=== PATIENT | male | born 1955 | race Caucasian/White ===

== ENCOUNTER → 2023-11-02 | Outpatient (CLI) | payer BC ==
--- NOTE | 2023-11-02 13:29 | CT ---
EXAMINATION TYPE: CT soft tissue neck w con DATE OF EXAM: 11/02/2023 HISTORY: left side swelling, mass/lump marked with bb, hx of tonsils removed and left side mastoidect naresh COMPARISON: NONE CT DLP: 408.30 mGycm. Automated Exposure Control for Dose Reduction was Utilized. TECHNIQUE: CT scan of the neck is performed with IV Contrast, patient injected with 100 mL of Isovue 300, axial images are obtained, coronal and sagittal reformatted images are reviewed. FINDINGS: Airway: Mild/moderate emphysematous change in the visualized upper lungs. Heterogeneous multinodular thyroid gland including partially calcified slightly hypodense 2.3 cm nodule in the left isthmus axia l image 40. Nonemergent thyroid ultrasound follow-up advised if this is not known finding. Parotid/submandibular glands: Metallic BB at site of palpable abnormality left parotid region axial i mage 76. There is heterogeneous circumscribed enhancing solid mass in the left parotid gland measurin g 3.9 x 2.5 cm size image 82 x 4.1 cm craniocaudal dimension coronal image 37. This occupying signifi cant portion of the posterior deep left parotid gland. Submandibular glands are symmetric and within normal limits. Carotid/Vascular Structures: There is 4 vessel origin from the aortic arch which is normal variant . Mild/moderate peripheral plaque in the aortic arch. Osseous Structures: Dextroconvex scoliosis centered in the upper thoracic spine. Slight grade 1 retro listhesis C4 on C5. [id number] spurring and disc space narrowing at this level and at C6-C7 lev el. Other: No definitive greater than 1 cm neck adenopathy. IMPRESSION: There is heterogeneous enhancing 4.1 cm predominantly solid mass in the left parotid glan d worrisome for neoplasm.. Advise ENT referral to further evaluate and workup.
== END | disposition home or self-care (01) ==
LOC: RADCTMAIN 10:55
PROVIDERS: ATTEND Family Medicine
DX: R22.1 Localized swelling, mass and lump, neck (principal)
CPT/HCPCS: 70491; Q9967

== ENCOUNTER 2023-11-29 08:42 | Day surgery (SDC) | payer BC ==
[2023-11-29] MEDS ORDERED: LACTATED RINGERS 1,000 ML IV SCH (09:29)
[2023-11-29] MEDS: LACTATED RINGERS 1,000 ML IV ONE (09:36)
[2023-11-29] MEDS: LABETALOL 5 MG/ML VIAL MDV IVP ONE (09:53)
[2023-11-29 10:09] VITALS: TEMP 98
[2023-11-29] MEDS ORDERED: PROPOFOL 10 MG/ML 20 ML VIAL IV ONE (10:23)
[2023-11-29] MEDS ORDERED: LIDOCAINE 1% INJ 10MG/ML (20 ML MDV) ONE (10:23)
--- NOTE | 2023-11-29 10:33 | P.PCN ---
Date of Procedure: 11/29/23 Procedure(s) Performed: BRIEF HISTORY: Patient is a 68-year-old, pleasant, male scheduled for an upper endoscopy as a part of evaluation of chronic dyspeptic symptoms for the last 3-4 years duration.. PROCEDURE PERFORMED: Esophagogastroduodenoscopy With biopsy PREOPERATIVE DIAGNOSIS: chronic epigastric pain of several years duration IV sedation per anesthesia. PROCEDURE: After informed consent was obtained, the patient was brought into the endoscopy unit. IV sedation was administered by Anesthesia under continuous monitoring. Initially the Olympus GIF-140 video endoscope was inserted into the mouth. Esophagus intubated without any difficulty. It was gradually advanced into the stomach and duodenum and carefully examined. The bulb and the second part of the duodenum appeared normal. up to his were done from the duodenum to rule out celiac disease. he scope at this time was withdrawn to the stomach, adequately insufflated with air, and upon careful examination, mucosa of the antrum, had mild mottling of the mucosa consistent with gastritis and biopsies were done from this area. Mucosa of the body, cardia and the fundus appeared normal. The scope was then withdrawn into the esophagus. The GE junction was located at 39 cm from the incisors. The esophagus appeared normal. There were no erosions or ulcerations seen, biopsies were done from the distal esophagus and the patient tolerated the procedure well. IMPRESSION: 1. Mild antral gastritis 2. No evidence of esophagitis or peptic ulcer disease RECOMMENDATIONS: The findings of this examination were discussed with the patient as well as his family. He was advised to continue with his current medications and follow antireflux measures. If he has persistent symptoms he can follow up in office for further evaluation
[2023-11-29 11:13] VITALS: BP 129/89; PULSE 83; RESP 18
== END 2023-11-29 11:49 | disposition home or self-care (01) ==
LOC: ORWHC2ENDO 08:42
PROVIDERS: ATTEND Internal Medicine Gastroenterology
DX: K29.50 Unspecified chronic gastritis without bleeding (principal); K31.A11 Gastric intestinal metaplasia without dysplasia, involving the antrum; K21.00 Gastro-esophageal reflux disease with esophagitis, without bleeding; G89.29 Other chronic pain; Z98.890 Other specified postprocedural states
CPT/HCPCS: 43239; J2001; J2704; J1920; 88305

== ENCOUNTER 2023-12-12 08:00 | Day surgery (SDC) | payer BC ==
[2023-12-12 09:12] VITALS: TEMP 97.7
[2023-12-12 09:45] VITALS: RESP 18
[2023-12-12 10:17] VITALS: BP 145/89; PULSE 77
--- NOTE | 2023-12-13 08:42 | US ---
EXAMINATION TYPE: US biopsy parotid gland DATE OF EXAM: 12/12/2023 9:44 AM CLINICAL INDICATION:Male, 68 years old with history of R22.1 localized swelling; thyroid nodule. COMPARISON: 11/02/2023 ATTENDING: Dr. Saul Bañuelos PROCEDURE: Informed consent was obtained. The risks and benefits of the procedure were discussed with the patien t. The site was marked. Timeout procedure was performed Ultrasound imaging of the thyroid demonstrates left parotid gland lesion. The patient was prepped, draped in the usual sterile fashion, and locally anesthetized with 1% lidoca ine. 3 x 20-gauge core biopsies were obtained. Samples were sent to the pathology department for furt her analysis. Patient tolerated the procedure without incident and was sent home in stable condition . IMPRESSION: Successful left parotid gland core biopsy.
== END 2023-12-12 09:50 | disposition home or self-care (01) ==
LOC: RADPROMAIN 08:00
PROVIDERS: ATTEND Otolaryngology
DX: E04.1 Nontoxic single thyroid nodule (principal)
CPT/HCPCS: 42400; 76942; 88305

== ENCOUNTER → 2023-12-14 | Outpatient (CLI) | payer BC ==
--- NOTE | 2023-12-14 22:25 | US ---
EXAMINATION TYPE: US thyroid st tissue head/neck DATE OF EXAM: 12/14/2023 COMPARISON: None CLINICAL INDICATION: Male, 68 years old with history of E04.1 NONTOXIC SINGLE THYROID NODULE; Thyroid nodule seen on CT. GLAND SIZE: Right Lobe: 3.5 x 2.1 x 1.8 cm Overall Parenchyma: Heterogeneous Left Lobe: 4.9 x 1.9 x 2.0 cm Overall Parenchyma: Heterogeneous Isthmus Thickness: 4.4 mm NODULES RIGHT: # of nodules measured on right: 1 1. 1.2 X 1.1 x 0.9 cm, lower medial, solid or almost completely solid, isoechoic nodule, which is w ider than tall, with smooth margins, but with echogenic foci making this a TR4 nodule. Prior size: No prior LEFT: # of nodules measured on left: 1 1. 2.7 X 1.6 x 2.0 cm, mid lateral, solid or almost completely solid, hyperechoic TR3 nodule, which is wider than tall, with smooth margins, without echogenic foci. Prior size: No prior ISTHMUS: # of nodules measured in the isthmus: 1 1. 2.3 X 1.8 x 1.4 cm left lateral solid or almost completely solid, hypoechoic TR4 nodule, which i s wider than tall, with smooth margins, with echogenic foci. Prior size: No prior Bilateral neck scanned, there is a thickened but nonenlarged lymph node along the right lateral neck, probably reactive/post inflammatory. Measuring 1.2 x 0.5 x 0.5 cm. IMPRESSION: 1. Correlate for multinodular goiter. 2. A 2.7 cm solid TR 3 nodule left lobe. FNA can be considered. 3. A 2.3 cm solid TR 4 nodule within the thyroid isthmus. FNA can be considered. 4. A 1.2 cm TR 4 nodule in the right lobe with punctate calcifications. Follow-up recommended. 2017 ACR TI-RADS LEVEL: TR-RADS 3 - Mildly Suspicious: Follow if > 1.5 cm, FNA if > 2.5 cm 2017 ACR TI-RADS LEVEL: TR-RADS 4 - Moderately Suspicious: Follow if > 1 cm, FNA if > 1.5 cm
== END | disposition home or self-care (01) ==
LOC: RADUSWWP 09:46
PROVIDERS: ATTEND Otolaryngology
DX: E04.2 Nontoxic multinodular goiter (principal); R22.0 Localized swelling, mass and lump, head
CPT/HCPCS: 76536

== ENCOUNTER → 2024-01-16 | Day surgery (SDC) | payer BC ==
[~2024-01-16] MED LIST: PROPOFOL 10 MG/ML 20 ML VIAL IV ONE
[2024-01-16] MEDS: LACTATED RINGERS 1,000 ML IV SCH (09:07)
[2024-01-16 09:25] VITALS: TEMP 98.1
--- NOTE | 2024-01-16 10:15 | P.PCN ---
Date of Procedure: 01/16/24 Procedure(s) Performed: BRIEF HISTORY: Patient is a 68-year-old pleasant White male scheduled for an elective colonoscopy as a part of Screening for colon cancer. PROCEDURE PERFORMED: Colonoscopy With snare polypectomy. PREOPERATIVE DIAGNOSIS: Screening for colon cancer. IV sedation per Anesthesia. PROCEDURE: After informed consent was obtained, the patient, was brought into the endoscopy unit. IV sedation was administered by Anesthesia under continuous monitoring. Digital rectal examination was normal. Initially the Olympus CF-160 flexible video colonoscope was then inserted in the rectum, gradually advanced into the cecum without any difficulty. Careful examination was performed as the scope was gradually being withdrawn. Ileocecal valve and the appendiceal orifice were visualized and appeared normal. Prep was excellent. Mucosa of the cecum, ascending colon, transverse colon, descending colon, Appeared normal. In the distal sigmoid colon at 25 cm from the anal verge there were 3 polyps measuring 3 mm, 7 mm and 1.2 cm all of which were removed by snare polypectomy. Rest of the sigmoid colon, and rectum appeared normal. Retroflexion was performed in the rectum and no lesions were seen. The patient tolerated the procedure well. IMPRESSION: 3 mm, 7 mm and 1.2 cm distal sigmoid polyps status post polypectomy Rest of the colon appeared normal RECOMMENDATIONS: Findings of this examination were discussed with the patient As well as his family. Follow with the biopsy results. If the biopsy results adenoma, recommend repeat colonoscopy in 3 years. He was advised to be a high- fiber diet and take fiber supplements a regular basis.
[2024-01-16 10:44] VITALS: BP 118/85; PULSE 93; RESP 14
== END ==
LOC: ORWHC2ENDO 08:46
PROVIDERS: ATTEND Internal Medicine Gastroenterology
DX: Z12.11 Encounter for screening for malignant neoplasm of colon (principal); D12.5 Benign neoplasm of sigmoid colon; K21.9 Gastro-esophageal reflux disease without esophagitis; F12.90 Cannabis use, unspecified, uncomplicated; Z90.49 Acquired absence of other specified parts of digestive tract; Z90.89 Acquired absence of other organs; Z98.890 Other specified postprocedural states; Z79.899 Other long term (current) drug therapy
CPT/HCPCS: 88305; 45385; J2704